=== PATIENT | male | born 1960 | race Caucasian/White ===

== ENCOUNTER 2018-01-11 22:13 | Emergency (ER) | payer BC ==
[~2018-01-11] VITALS: Ht 175.3 cm; Wt 93.0 kg
[~2018-01-11 22:13] MED LIST: Adipex-P37.5 MG; DAILY MULTIPLE1 EACH; FEXPSEER; GLUC500; LACT10SY PO; METO50ER PO; NAPR550 PO; OXYACE5T PO; RXNAPNA550 PO
[2018-01-12 01:58] LABS: BASOPHILS ABSOLUTE AUTO 0.03 K/mm3 (0.00-0.23); BASOPHILS PERCENT AUTO 0 % (0-2); EOSINOPHILS ABSOLUTE AUTO 0.09 K/mm3 (0.00-0.68); EOSINOPHILS PERCENT AUTO 1 % (0-6); Hematocrit 39.1 % (37.0-53.0); Hemoglobin 13.1 g/dL (13.5-17.5); IMMATURE GRAN ABSOLUTE AUTO 0.03 K/mm3 (0.00-0.10); IMMATURE GRAN PERCENT AUTO 0 % (0-1); LYMPHOCYTES ABSOLUTE AUTO 2.31 K/mm3 (0.84-5.20); LYMPHOCYTES PERCENT AUTO 22 % (21-46); MONOCYTES ABSOLUTE AUTO 0.85 K/mm3 (0.16-1.47); MONOCYTES PERCENT AUTO 8 % (4-13); Mean Corpuscular HGB Conc 33.5 g/dL (31.5-36.5); Mean Corpuscular Volume 95 fL (80-100); NEUTROPHILS ABSOLUTE AUTO 7.26 K/mm3 (1.96-9.15); NEUTROPHILS PERCENT AUTO 69 % (41-73); Platelet Count 208 K/mm3 (150-400); RDW Coefficient Variation 12.3 % (11.7-14.2); RDW Standard Deviation 42.9 fL (35.1-46.3); White Blood Cell Count 10.57 K/mm3 (4.00-11.30)
[2018-01-12 02:18] LABS: Alanine Aminotransfer (ALT/SGP 44 U/L (12-78); Albumin, Blood 3.6 g/dL (3.4-5.0); Albumin/Globulin Ratio 0.9 (0.8-1.8); Alk Phos 69 U/L (50-136); Anion Gap 8 mmol/L (6-16); Aspartate Aminotrans (AST/SGOT 42 U/L (12-37); Bilirubin, Total 0.6 mg/dL (0.1-1.0); Blood Urea Nitrogen 9 mg/dL (8-24); Bun/Creatinine Ratio 11.7 (12.0-20.0); CO2, Blood 25 mmol/L (21-32); Calcium, Blood 8.2 mg/dL (8.5-10.1); Chloride, Blood 105 mmol/L (98-108); Creatinine, Blood 0.77 mg/dL (0.60-1.20); Globulin, Blood 4.1 g/dL (2.2-4.0); Glomerular Filtration Rate >60 (60-); Glucose, Blood 114 mg/dL (70-99); Potassium, Blood 4.3 mmol/L (3.5-5.5); Sodium, Blood 138 mmol/L (136-145); Total Protein, Blood 7.7 g/dL (6.4-8.2); Troponin I <0.015 ng/mL (0.000-0.040)
[2018-01-12 02:27] LABS: Influenza A Negative (NEGATIVE); Influenza B Negative (NEGATIVE)
[2018-01-12] MEDS ORDERED: Levaquin500 MG PO (02:55)
== END 2018-01-12 03:19 | disposition home or self-care (01) ==
LOC: ER 22:13
PROVIDERS: Emergency Medicine
DX: J18.9 Pneumonia, unspecified organism (principal); Z79.899 Other long term (current) drug therapy; I10 Essential (primary) hypertension; Z98.890 Other specified postprocedural states
CPT/HCPCS: 36415; 71046; 80053; 83880; 84484; 85025; 87804; 93005; 93010; 99283

== ENCOUNTER 2019-02-05 20:35 | Emergency (ER) | payer BC ==
[~2019-02-05] VITALS: Ht 175.3 cm; Wt 99.8 kg
[~2019-02-05 20:35] MED LIST changes: +Levaquin500 MG PO
[2019-02-05] MEDS ORDERED: Cardizem LA120 MG PO (21:26)
[2019-02-06 00:36] LABS: BASOPHILS ABSOLUTE AUTO 0.05 K/mm3 (0.00-0.23); BASOPHILS PERCENT AUTO 1 % (0-2); EOSINOPHILS ABSOLUTE AUTO 0.15 K/mm3 (0.00-0.68); EOSINOPHILS PERCENT AUTO 3 % (0-6); Hemoglobin 13.9 g/dL (13.5-17.5); IMMATURE GRAN ABSOLUTE AUTO 0.01 K/mm3 (0.00-0.10); IMMATURE GRAN PERCENT AUTO 0 % (0-1); LYMPHOCYTES ABSOLUTE AUTO 2.97 K/mm3 (0.84-5.20); LYMPHOCYTES PERCENT AUTO 51 % (21-46); MONOCYTES ABSOLUTE AUTO 0.37 K/mm3 (0.16-1.47); MONOCYTES PERCENT AUTO 6 % (4-13); Mean Corpuscular HGB 32.7 pg (26.0-34.0); Mean Corpuscular HGB Conc 33.1 g/dL (31.5-36.5); Mean Corpuscular Volume 99 fL (80-100); Mean Platelet Volume 10.5 fL (9.1-12.4); NEUTROPHILS ABSOLUTE AUTO 2.26 K/mm3 (1.96-9.15); NEUTROPHILS PERCENT AUTO 39 % (41-73); Platelet Count 162 K/mm3 (150-400); RDW Coefficient Variation 12.5 % (11.7-14.2); Red Blood Cell Count 4.25 M/mm3 (4.30-5.90); White Blood Cell Count 5.81 K/mm3 (4.00-11.30)
[2019-02-06 00:46] LABS: Alanine Aminotransfer (ALT/SGP 42 U/L (12-78); Albumin, Blood 4.1 g/dL (3.4-5.0); Albumin/Globulin Ratio 1.4 (0.8-1.8); Alk Phos 46 U/L (50-136); Anion Gap 6 mmol/L (6-16); Aspartate Aminotrans (AST/SGOT 19 U/L (12-37); Bilirubin, Total 0.3 mg/dL (0.1-1.0); Blood Urea Nitrogen 19 mg/dL (8-24); Bun/Creatinine Ratio 23.4 (12.0-20.0); CO2, Blood 24 mmol/L (21-32); Calcium, Blood 8.5 mg/dL (8.5-10.1); Chloride, Blood 111 mmol/L (98-108); Creatinine, Blood 0.81 mg/dL (0.60-1.20); Glomerular Filtration Rate >60 (60-); Glucose, Blood 107 mg/dL (70-99); Potassium, Blood 3.5 mmol/L (3.5-5.5); Sodium, Blood 141 mmol/L (136-145); Total Protein, Blood 7.1 g/dL (6.4-8.2)
== END 2019-02-06 03:13 | disposition home or self-care (01) ==
LOC: ER 20:35
PROVIDERS: Emergency Medicine
DX: R59.0 Localized enlarged lymph nodes (principal); I10 Essential (primary) hypertension; Z79.899 Other long term (current) drug therapy
CPT/HCPCS: 36415; 70491; 80053; 85025; 99283-25; Q9967

== ENCOUNTER 2019-04-09 07:43 | Day surgery (SDC) | payer BC ==
[~2019-04-09 07:43] MED LIST changes: +Cardizem LA120 MG PO
== END 2019-04-10 22:40 | disposition home or self-care (01) ==
LOC: MOI US 07:43
DX: C91.10 Chronic lymphocytic leukemia of B-cell type not having achieved remission (principal)
CPT/HCPCS: 38505; 76942; 88305; 88341; 88342

== ENCOUNTER 2020-11-13 07:17 | Observation (INO) | payer BC ==
[~2020-11-13] VITALS: Ht 175.3 cm; Wt 100.0 kg
[2020-11-13] MEDS ORDERED: METO100ER PO (07:24)
[2020-11-13] MEDS ORDERED: IMBRUVICA420 MG PO (07:24)
[2020-11-13 08:31] LABS: BASOPHILS ABSOLUTE AUTO 0.05 K/mm3 (0.00-0.23); BASOPHILS PERCENT AUTO 0 % (0-2); EOSINOPHILS ABSOLUTE AUTO 0.02 K/mm3 (0.00-0.68); EOSINOPHILS PERCENT AUTO 0 % (0-6); Hematocrit 44.4 % (37.0-53.0); Hemoglobin 14.5 g/dL (13.5-17.5); IMMATURE GRAN ABSOLUTE AUTO 0.05 K/mm3 (0.00-0.10); IMMATURE GRAN PERCENT AUTO 0 % (0-1); LYMPHOCYTES ABSOLUTE AUTO 0.89 K/mm3 (0.84-5.20); LYMPHOCYTES PERCENT AUTO 6 % (21-46); MONOCYTES PERCENT AUTO 4 % (4-13); Mean Corpuscular HGB 32.7 pg (26.0-34.0); Mean Corpuscular HGB Conc 32.7 g/dL (31.5-36.5); Mean Corpuscular Volume 100 fL (80-100); Mean Platelet Volume 11.5 fL (9.1-12.4); NEUTROPHILS PERCENT AUTO 89 % (41-73); Platelet Count 156 K/mm3 (150-400); RDW Standard Deviation 47.9 fL (35.1-46.3); Red Blood Cell Count 4.44 M/mm3 (4.30-5.90); White Blood Cell Count 14.21 K/mm3 (4.00-11.30)
[2020-11-13 08:56] LABS: Troponin I <0.015 ng/mL (0.000-0.040)
[2020-11-13 08:57] LABS: Alanine Aminotransfer (ALT/SGP 32 U/L (12-78); Albumin, Blood 3.8 g/dL (3.4-5.0); Albumin/Globulin Ratio 1.2 (0.8-1.8); Alk Phos 50 U/L (50-136); Anion Gap 6 mmol/L (6-16); Aspartate Aminotrans (AST/SGOT 19 U/L (12-37); Bilirubin, Total 0.5 mg/dL (0.1-1.0); Blood Urea Nitrogen 11 mg/dL (8-24); Bun/Creatinine Ratio 13.1 (12.0-20.0); CO2, Blood 23 mmol/L (21-32); Calcium, Blood 8.9 mg/dL (8.5-10.1); Chloride, Blood 111 mmol/L (98-108); Creatinine, Blood 0.84 mg/dL (0.60-1.20); Globulin, Blood 3.1 g/dL (2.2-4.0); Glomerular Filtration Rate >60 (60-); Glucose, Blood 129 mg/dL (70-99); Potassium, Blood 4.2 mmol/L (3.5-5.5); Sodium, Blood 140 mmol/L (136-145); Total Protein, Blood 6.9 g/dL (6.4-8.2)
[2020-11-13] MEDS ORDERED: TOPROL XL50 M1 PO (12:19)
[2020-11-13 15:25] LABS: Source, Urine Clean Catch
[2020-11-13 15:29] LABS: Appearance, Urine Clear (Clear); Bilirubin, Urine Neg (Neg); Blood, Urine 2+ (Neg); Color, Urine Yellow (P-Yellow); Glucose Qualitative, Urine Neg (Neg); Ketones, Urine Neg (Neg); Leukocyte Esterase, Urine Neg (Neg); Nitrite, Urine Neg (Neg); Protein, Urine Neg (Neg); Urobilinogen, Urine NORM (Normal)
[2020-11-13 15:37] LABS: Bacteria Not Seen /hpf; Red Blood Cells, Urine 0-2 /hpf (0-2); Squamous Epithelial Cells Not Seen /hpf (Few); White Blood Cells, Urine Not Seen /hpf (0-5)
[2020-11-13] MEDS ORDERED: Allergy Relief10 M1 PO (16:25)
[2020-11-13] MEDS ORDERED: META800 PO (16:25)
[2020-11-13] MEDS ORDERED: DIPH50 PO (16:26)
--- NOTE | 2020-11-13 19:17 | NUR ---
SHIFT SUMMARY MARSHA ARRIVED FROM ER AROUND 220 PM. COMPLAINED OF MILD PAIN IN SHOULDERS/CHEST/HEAD. GOT TYLENOL FOR HEADACHE, STATES HIS CHEST AND SHOULDER PAIN ARE MUCH BETTER THAN IN ER. TELE SHOWS NSR. INDEP TO BR. CALL LIGHT IN REACH, REPORT GIVEN TO NIGHT NURSE
[2020-11-14 05:21] LABS: BASOPHILS ABSOLUTE AUTO 0.03 K/mm3 (0.00-0.23); BASOPHILS PERCENT AUTO 0 % (0-2); EOSINOPHILS ABSOLUTE AUTO 0.02 K/mm3 (0.00-0.68); EOSINOPHILS PERCENT AUTO 0 % (0-6); Hematocrit 40.5 % (37.0-53.0); Hemoglobin 13.2 g/dL (13.5-17.5); IMMATURE GRAN ABSOLUTE AUTO 0.03 K/mm3 (0.00-0.10); IMMATURE GRAN PERCENT AUTO 0 % (0-1); LYMPHOCYTES ABSOLUTE AUTO 1.45 K/mm3 (0.84-5.20); LYMPHOCYTES PERCENT AUTO 18 % (21-46); MONOCYTES ABSOLUTE AUTO 0.72 K/mm3 (0.16-1.47); MONOCYTES PERCENT AUTO 9 % (4-13); Mean Corpuscular HGB Conc 32.6 g/dL (31.5-36.5); Mean Corpuscular Volume 98 fL (80-100); Mean Platelet Volume 11.1 fL (9.1-12.4); NEUTROPHILS ABSOLUTE AUTO 6.03 K/mm3 (1.96-9.15); NEUTROPHILS PERCENT AUTO 73 % (41-73); Platelet Count 139 K/mm3 (150-400); RDW Standard Deviation 46.5 fL (35.1-46.3); Red Blood Cell Count 4.13 M/mm3 (4.30-5.90); White Blood Cell Count 8.28 K/mm3 (4.00-11.30)
[2020-11-14 05:37] LABS: LDL/HDL RATIO 1.6; Very Low Density Lipoprot Chol 15 mg/dL (6-32)
[2020-11-14 05:38] LABS: CHOL/HDL RATIO 2.9; Cholesterol 150 mg/dL (50-200); HDL Cholesterol 51 mg/dL (>39); Low Density Lipoprotein Chol 84 mg/dL (0-110); Triglycerides 76 mg/dL (30-160)
--- NOTE | 2020-11-14 05:45 | NUR ---
SHIFT SUMMARY AOX4. VSS. TELE NSR c PVC @96. DENIES DYSPNEA, N/V, DIZZINESS, MEDRANO. REPORTS 01/10 "DISCOMFORT" NOT PAIN, IN BILAT SHOULDERS & MID CHEST/STERNUM. STATES HIS PAIN IS WAY BETTER THEN YESTERDAY MORNING. TROPONINS HAVE BEEN NEG. IND IN ROOM. CALL LIGHT IN REACH & PT ABLE TO MAKE NEEDS KNOWN. WILL MONITOR UNTIL DAY NURSE ASSUMES CARE.
--- NOTE | 2020-11-14 12:46 | NUR ---
Patient is lying in bed and alert. Patient tells me about his cancer diagnosis, his current symptoms and his hopes of DC soon. Patient talks of his family unit, his anabaptist ([employer]) and his career (42yrs in [employer] and 31yrs at [employer]). We discuss our common Lymphoma stories and the valuable lessons gained along the way. Patient shares about his personal feelings. I normalize the struggle he and his family are going through, reinforce his positive/yonmu-[id number]-emzd attitude and provide therapeutic listening. pastoral career guidance counselor and prayer. Patient responds well and shows signs of increased hope and valentina. I will continue to remain available to patient and family.
[2020-11-14 14:14] LABS: Influenza A, PCR Negative (NEGATIVE); Influenza B, PCR Negative (NEGATIVE); Resp Syncytial Virus, PCR Negative (NEGATIVE); SARS-Cov-2 (COVID-19) PCR, MMC Negative (NEGATIVE)
--- NOTE | 2020-11-14 14:45 | NUR ---
PATIENT D/C'D TO HOME. F/U APPT MADE WITH PCP AND ONCOLOGIST. NO NEW PRESCRIPTIONS ORDERED. DC INSTRUCTIONS AND EDUCATION DISCUSSED WITH PATIENT AND COPY PROVIDED. PATIENT DENIES ANY FURTHER QUESTIONS OR CONCERNS.
== END 2020-11-14 14:46 | disposition home or self-care (01) ==
LOC: ER 07:17 → MEDS 07:18
PROVIDERS: Emergency Medicine; Family Medicine; Nurse Practitioner Acute Care; ADMIT Internal Medicine
DX: R07.2 Precordial pain (principal); M25.512 Pain in left shoulder; M25.511 Pain in right shoulder; R00.0 Tachycardia, unspecified; C85.90 Non-Hodgkin lymphoma, unspecified, unspecified site; D72.828 Other elevated white blood cell count; I10 Essential (primary) hypertension; Z79.899 Other long term (current) drug therapy; Z20.828 Contact with and (suspected) exposure to other viral communicable diseases; Z23 Encounter for immunization; Z88.8 Allergy status to other drugs, medicaments and biological substances
CPT/HCPCS: 0241U; 36415; 71046; 71275; 80053; 80061; 81001; 83880; 84484; 85025; 85379; 85651; 86140; 93005; 93010; 93306; 96374-59; 96375-59; 99285-25; A9270; A9270-GY; G0378; J2405; J3010; J7030; J7120; Q9967

== ENCOUNTER 2021-02-08 10:05 | Day surgery (SDC) | payer BC ==
[~2021-02-08] VITALS: Ht 175.3 cm; Wt 95.3 kg
[~2021-02-08 10:05] MED LIST changes: +Allergy Relief10 M1 PO; +DIPH50 PO; +IMBRUVICA420 MG PO; +META800 PO; +METO100ER PO; +TOPROL XL50 M1 PO
--- NOTE | 2021-02-08 11:51 | NUR ---
Ambulatory in Day Surgery History, Chart, Medications and Allergies reviewed before start of procedure. Lungs clear T/O to Auscultation. Pre-Op teaching done. Pt verbalizes understanding.
--- NOTE | 2021-02-08 14:16 | NUR ---
ARRIVED FROM PACU VSS STERI STRIPS IN PLACE TIMES 4. RECIEVED REPORT.
--- NOTE | 2021-02-08 16:13 | NUR ---
PATIENT HAS BEEN FEELING NAUSEATED AND PAINFUL GIVEN PO RX AND ANTI NAUSEA MEDS STATES IS FEELING BETTER.
--- NOTE | 2021-02-08 17:49 | NUR ---
DOCTOR WAS HERE ABOUT 1720 TALKING WITH APTIENT SCOPE PATCH ORDERED AND PLACED ON PATIENT VSS. ABOUT 5 MINUTES LATER PATIENT WANTED TO GET DRESSED TO LEAVE HOPITAL PATIENT ASSISTED UP AND HE DRESSED USED RESTROOOM AND WAS DISCHARGED WITH ALL BELONGINGS AND DISCHARGE INSTRUCTIONS.. Discharge instructions reviewed with patient. Patient verbalizes understanding. Copy given to patient to take home. Patient States Post-Procedure ride home has been arranged. Discharged via wheelchair to private car for ride home.
== END 2021-02-08 17:45 | disposition home or self-care (01) ==
LOC: ORSCMMR 10:05 → ORD 11:30 → ORSCMMR 11:30
PROVIDERS: Surgery
PROC: BF031ZZ Plain Radiography of Gallbladder and Bile Ducts using Low Osmolar Contrast (ICD-10-PCS; principal; 2021-02-08 11:30)
PROC: 0FT44ZZ Resection of Gallbladder, Percutaneous Endoscopic Approach (ICD-10-PCS; principal; 2021-02-08 11:30)
DX: K80.10 Calculus of gallbladder with chronic cholecystitis without obstruction (principal); G47.33 Obstructive sleep apnea (adult) (pediatric); Z79.899 Other long term (current) drug therapy
CPT/HCPCS: 74300; 88304; A9270; C1729; J0690; J1100; J1885; J2250; J2405; J2704; J2710; J2765; J3010; J7120

== ENCOUNTER 2022-05-16 09:50 | Day surgery (SDC) | payer BC ==
[~2022-05-16] VITALS: Ht 175.3 cm; Wt 89.3 kg
[~2022-05-16 09:50] MED LIST changes: +B-12500 MC2 PO; +BENADRYL25 MG PO; +BENEFIBER236 G1 PO; +CALCIUM 250-D1 EAC1 PO; +Coq-1030 MG PO; +GLUCHON PO; +MULVITA PO
--- NOTE | 2022-05-16 10:36 | NUR ---
PT ADMITTED TO [facility]. AGREES WITH PLANNED SURGERYL. LUNG SOUNDS CLEAR.
--- NOTE | 2022-05-16 13:30 | NUR ---
REPORT FROM HIEU YOUSIF RN. PT HAS ONE INCISION SITE ON L INGUINAL AREA THAT IS COVERED WITH FOUR INCHES OF GUAZE AND CLEAR WINDOW TAPE. DRESSING IS DRY, CLEAN AND INTACT, NO DRAINAGE OR INFLAMMATION OR REDNESS NOTED.
--- NOTE | 2022-05-16 13:59 | NUR ---
PT TOLERATING PO FLUIDS AND FOOD, REPOSITIONING SELF IN BED, REQUESTING TO GO HOME.
--- NOTE | 2022-05-16 14:29 | NUR ---
Patient up to Ambulate independently. Gait steady. Discharge instructions reviewed with patient. Patient verbalizes understanding. Copy given to patient to take home. Dressing to procedure site clean, dry, intact with no visible drainage, swelling, erythema or bruising noted. Patient States Post-Procedure ride home has been arranged. Discharged via wheelchair to private car for ride home. ALL BELONGINGS RETURNED TO PATIENT TO INCLUDE CELLPHONE AND GLASSES.
== END 2022-05-16 22:33 | disposition home or self-care (01) ==
LOC: ORSCMMR 09:50 → ORD 11:15 → ORSCMMR 11:15
PROVIDERS: Surgery
PROC: 0YU60JZ Supplement Left Inguinal Region with Synthetic Substitute, Open Approach (ICD-10-PCS; principal; 2022-05-16 11:15)
DX: K40.91 Unilateral inguinal hernia, without obstruction or gangrene, recurrent (principal); I10 Essential (primary) hypertension; G47.33 Obstructive sleep apnea (adult) (pediatric); Z79.899 Other long term (current) drug therapy
CPT/HCPCS: A9270; J0690; J1100; J1885; J2250; J2370; J2405; J2704; J3010; J7120

== ENCOUNTER 2022-06-27 19:05 | Observation (INO) | payer BC ==
[~2022-06-27] VITALS: Ht 175.3 cm; Wt 85.8 kg
[2022-06-27 19:44] LABS: Hematocrit 42.3 % (37.0-53.0); Hemoglobin 14.5 g/dL (13.5-17.5); Mean Corpuscular HGB 32.2 pg (26.0-34.0); Mean Corpuscular HGB Conc 34.3 g/dL (31.5-36.5); Mean Corpuscular Volume 94 fL (80-100); Mean Platelet Volume 11.2 fL (9.1-12.4); Platelet Count 184 K/mm3 (150-400); RDW Coefficient Variation 13.5 % (11.7-14.2); RDW Standard Deviation 46.7 fL (35.1-46.3)
[2022-06-27 20:14] LABS: Albumin, Blood 4.1 g/dL (3.4-5.0); Albumin/Globulin Ratio 1.4 (0.8-1.8); Bilirubin, Total 0.6 mg/dL (0.1-1.0); Bun/Creatinine Ratio 14.2 (12.0-20.0); Creatinine, Blood 0.56 mg/dL (0.60-1.20); Potassium, Blood 3.8 mmol/L (3.5-5.5); Total Protein, Blood 7.1 g/dL (6.4-8.2)
[2022-06-27 20:15] LABS: BAND PERCENT MAN 1 % (0-8); BASOPHILS PERCENT MAN 0 % (0-2); EOSINOPHILS ABSOLUTE MAN 0.13 K/mm3 (0.00-0.68); EOSINOPHILS PERCENT MAN 1 % (0-6); LYMPHOCYTES ABSOLUTE MAN 2.16 K/mm3 (0.84-5.20); LYMPHOCYTES PERCENT MAN 16 % (21-46); MONOCYTES ABSOLUTE MAN 0.81 K/mm3 (0.16-1.47); MONOCYTES PERCENT MAN 6 % (4-13); NEUTROPHILS ABSOLUTE MAN 10.39 K/mm3 (1.96-9.15); SEG NEUTROPHILS PERCENT MAN 76 % (41-73); TOTAL CELLS COUNTED 100
[2022-06-27 23:44] LABS: Influenza A, PCR NEGATIVE (NEGATIVE); Influenza B, PCR NEGATIVE (NEGATIVE); Resp Syncytial Virus, PCR NEGATIVE (NEGATIVE); SARS-Cov-2 (COVID-19) PCR, MMC NEGATIVE (NEGATIVE)
--- NOTE | 2022-06-28 10:23 | NUR ---
Pt. is awake and welcomes my visit. Pt. is pleasant and rapport is quickly established. Pt. displays evidence of being realistically anxious about the wait for an opening for surgery. Listen empathetically with a calming presence. Pt. verbalizes that he has family support and has been under treatment for lymphoma. Prayed with Pt. Pt. verbalized gratitude for the spiritual care visit.
--- NOTE | 2022-06-28 12:18 | NUR ---
THE PATIENT WAS BROUGHT TO DAY SURGERY FOR HIS PROCEDURE.
--- NOTE | 2022-06-28 14:54 | NUR ---
06/28/22 1454 Kirstin Holcomb NO PREOP ANTIBIOTICS ORDERD PER , PATIENT IS ON SCHEDULED ANTIBIOTICS.
--- NOTE | 2022-06-28 18:08 | NUR ---
SHIFT SUMMARY PT A&OX4, VSS/RA. SIPPING CLEAR LIQUIDS, AWAITING POST-OP VOID, DENIES NEED FOR PAIN MEDICATION. STAND TRANSFER UPON RETURN FROM PACU. WILL REPORT TO ONCOMING NOC RN.
--- NOTE | 2022-06-29 06:48 | NUR ---
SHIFT SUMMARY POD1 LAP APPY W/ 3 LAP SITES (DERMABOND) REMAIN CDI. PT RERPOTS MOD PAIN AT THE BEGINNING OF SHIFT TO MILD PAIN THIS MORNING. PAIN MANAGED WITH 1 TAB OF NORCO 5/325 AND TORADOL. VSS. MILDLY TACHY AT THE BEGINNING OF SHIFT. VOIDING WITHOUT DIFFICULTY. AOX4. DENIES PASSING FLATUS. BT PRESENT. TOLERATING CLEAR DIET T/O SHIFT. DENIES NAUSEA AND VOMITING. 1SBA. IV ABX ADMINISTERED. CALL LIGHT WITHIN REACH. WILL CONTINUE TO MONITOR AND WILL PROVIDE REPORT TO ONCOMING NURSE.
[2022-06-29] MEDS ORDERED: AMOCLA875 PO (11:06)
[2022-06-29] MEDS ORDERED: HYDR1TAB94 PO (11:07)
--- NOTE | 2022-06-29 12:24 | NUR ---
DISCHARGE SUMMARY POD1 LAP APPY, A/O X4, VSS, TOLERATING PO, AMBULATING INDEPENDENTLY, DENIES PAIN, VOIDING WELL, PASSING FLATUS. DISCUSSED DISCHARGE INSTRUCTIONS WITH THE PATIENT INCLUDING HOME CARE, S/SX TO LOOK OUT FOR AND HOW TO CONTACT SURGEON/SURGICAL STAFF WITH CONCERNS/FOLLOW UP QUESTIONS, MEDICATIONS, AND FOLLOW UP APPOINTMENTS. PT HAD NO QUESTIONS, IV ACCESS REMOVED. PT DRESSED INDEPENDENTLY AND LEFT ON HIS OWN, DECLINED WC ESCORT.
== END 2022-06-29 11:50 | disposition home or self-care (01) ==
LOC: ER 19:05 → MEDS 19:06 → SURS 19:06
PROVIDERS: Student in an Organized Health Care Education/Training Program; ADMIT Surgery
DX: K35.80 Unspecified acute appendicitis (principal); Z79.899 Other long term (current) drug therapy; Z20.822 Contact with and (suspected) exposure to COVID-19
CPT/HCPCS: 0241U; 36415; 74177; 80053; 85025; 88304; 94760; 96361; 96365-59; 96366; 96368; 96375; 96376; 99285-25; A9270; G0378; J0295; J0744; J1100; J1885; J2250; J2270; J2405; J2704; J3010; J7030; J7120; Q9967

== ENCOUNTER → 2023-03-03 | Outpatient (CLI) | payer BC ==
[~2023-03-03] MED LIST changes: +AMOCLA875 PO; +HYDR1TAB94 PO
== END | disposition home or self-care (01) ==
LOC: LAB SHORT 11:28 → PLD 11:28
DX: C44.519 Basal cell carcinoma of skin of other part of trunk (principal); C79.2 Secondary malignant neoplasm of skin
CPT/HCPCS: 88305

== ENCOUNTER → 2023-04-15 | Outpatient (CLI) | payer BC | LOC: PLD 09:15 → LAB SHORT 09:15 → LAB 09:15 | DX: C44.519 Basal cell carcinoma of skin of other part of trunk (principal) | CPT/HCPCS: 88305 ==

== ENCOUNTER → 2023-04-29 | Outpatient (CLI) | payer BC | END | disposition home or self-care (01) | LOC: PLD 08:30 → LAB SHORT 08:30 | DX: C44.619 Basal cell carcinoma of skin of left upper limb, including shoulder (principal) | CPT/HCPCS: 88305 ==

== ENCOUNTER → 2023-09-02 | Outpatient (CLI) | payer BC | LOC: LAB SHORT 11:52 → LAB 11:52 | DX: L08.0 Pyoderma (principal) | CPT/HCPCS: 87070; 87077; 87147; 87186; 87205 ==

== ENCOUNTER 2024-06-10 15:39 | Emergency (ER) | payer BC ==
[~2024-06-10] VITALS: Ht 175.3 cm; Wt 94.8 kg
[2024-06-10 16:15] LABS: BASOPHILS ABSOLUTE AUTO 0.04 K/mm3 (0.00-0.23); BASOPHILS PERCENT AUTO 1 % (0-2); EOSINOPHILS ABSOLUTE AUTO 0.09 K/mm3 (0.00-0.68); EOSINOPHILS PERCENT AUTO 1 % (0-6); Hematocrit 42.3 % (37.0-53.0); Hemoglobin 14.4 g/dL (13.5-17.5); IMMATURE GRAN ABSOLUTE AUTO 0.02 K/mm3 (0.00-0.10); IMMATURE GRAN PERCENT AUTO 0 % (0-1); LYMPHOCYTES ABSOLUTE AUTO 2.81 K/mm3 (0.84-5.20); LYMPHOCYTES PERCENT AUTO 37 % (21-46); MONOCYTES ABSOLUTE AUTO 0.75 K/mm3 (0.16-1.47); MONOCYTES PERCENT AUTO 10 % (4-13); Mean Corpuscular HGB 33.1 pg (26.0-34.0); Mean Corpuscular Volume 97 fL (80-100); Mean Platelet Volume 11.6 fL (9.1-12.4); NEUTROPHILS PERCENT AUTO 51 % (41-73); Platelet Count 150 K/mm3 (150-400); RDW Coefficient Variation 12.9 % (11.7-14.2); RDW Standard Deviation 46.2 fL (35.1-46.3); Red Blood Cell Count 4.35 M/mm3 (4.30-5.90); White Blood Cell Count 7.61 K/mm3 (4.00-11.30)
[2024-06-10] MEDS ORDERED: IMBRUVICA420 MG PO (16:15)
[2024-06-10 16:35] LABS: Albumin, Blood 3.9 g/dL (3.4-5.0); Albumin/Globulin Ratio 1.2 (0.8-1.8); Bilirubin, Total 0.5 mg/dL (0.1-1.0); Bun/Creatinine Ratio 11.9 (12.0-20.0); Calcium, Blood 8.5 mg/dL (8.5-10.1); Creatinine, Blood 0.93 mg/dL (0.60-1.20); Globulin, Blood 3.2 g/dL (2.2-4.0); Potassium, Blood 3.4 mmol/L (3.5-5.5); Thyroid Stimulating Hormone 2.38 uIU/mL (0.360-4.800); Total Protein, Blood 7.1 g/dL (6.4-8.2)
[2024-06-10 18:18] VITALS: BP 176/90
== END 2024-06-10 18:18 | disposition home or self-care (01) ==
LOC: ER 15:39
PROVIDERS: Emergency Medicine
DX: R00.2 Palpitations (principal); I10 Essential (primary) hypertension
CPT/HCPCS: 80053; 84443; 84484; 85025; 93005; 93010; 99285-25

== ENCOUNTER 2025-03-09 10:27 | Observation (INO) | payer MEDICARE ==
[~2025-03-09] VITALS: Ht 175.3 cm; Wt 95.3 kg
[2025-03-09 11:44] LABS: BASOPHILS ABSOLUTE AUTO 0.06 K/mm3 (0.00-0.23); BASOPHILS PERCENT AUTO 1 % (0-2); EOSINOPHILS ABSOLUTE AUTO 0.08 K/mm3 (0.00-0.68); EOSINOPHILS PERCENT AUTO 1 % (0-6); Hematocrit 44.6 % (37.0-53.0); Hemoglobin 14.8 g/dL (13.5-17.5); IMMATURE GRAN ABSOLUTE AUTO 0.12 K/mm3 (0.00-0.10); IMMATURE GRAN PERCENT AUTO 2 % (0-1); LYMPHOCYTES ABSOLUTE AUTO 1.76 K/mm3 (0.84-5.20); LYMPHOCYTES PERCENT AUTO 28 % (21-46); MONOCYTES ABSOLUTE AUTO 0.38 K/mm3 (0.16-1.47); MONOCYTES PERCENT AUTO 6 % (4-13); Mean Corpuscular HGB 32.5 pg (26.0-34.0); Mean Corpuscular HGB Conc 33.2 g/dL (31.5-36.5); Mean Corpuscular Volume 98 fL (80-100); Mean Platelet Volume 11.1 fL (9.1-12.4); NEUTROPHILS ABSOLUTE AUTO 3.97 K/mm3 (1.96-9.15); NEUTROPHILS PERCENT AUTO 62 % (41-73); Platelet Count 167 K/mm3 (150-400); RDW Coefficient Variation 12.5 % (11.7-14.2); RDW Standard Deviation 45.1 fL (35.1-46.3); Red Blood Cell Count 4.55 M/mm3 (4.30-5.90); White Blood Cell Count 6.37 K/mm3 (4.00-11.30)
[2025-03-09 11:55] LABS: International Normalized Ratio 1.02; Prothrombin Time Results 10.9 Sec (9.7-11.5)
[2025-03-09] MEDS ORDERED: FentaNYL Citrate 50 MCG/ML 2 ML Injection IV ONE (12:20)
[2025-03-09 12:33] LABS: Albumin, Blood 3.9 g/dL (3.4-5.0); Albumin/Globulin Ratio 1.1 (0.8-1.8); Bilirubin, Total 0.5 mg/dL (0.1-1.0); Bun/Creatinine Ratio 10.6 (12.0-20.0); Calcium, Blood 9.2 mg/dL (8.5-10.1); Creatinine, Blood 0.94 mg/dL (0.60-1.20); Globulin, Blood 3.4 g/dL (2.2-4.0); Potassium, Blood 4.7 mmol/L (3.5-5.5); Total Protein, Blood 7.3 g/dL (6.4-8.2)
[2025-03-09] MEDS ORDERED: NS 1,000 ML IV SCH (16:35)
[2025-03-09] MEDS ORDERED: OxyCODONE HCL 5 MG TAB PO ONE (16:35)
[2025-03-09] MEDS ORDERED: Ondansetron 4 MG TAB PO ONE (16:35)
[2025-03-09] MEDS ORDERED: Magnesium Hydroxide Conc 10 ML UDC PO PRN (19:10)
[2025-03-09] MEDS ORDERED: FentaNYL Citrate 50 MCG/ML 2 ML Injection IV PRN (19:10)
[2025-03-09] MEDS ORDERED: HYDROcodone 5-APAP 325 TAB PO PRN (19:10)
[2025-03-09] MEDS ORDERED: Ondansetron HCl 2 MG / ML 2ML Vial IV PRN (19:10)
[2025-03-09] MEDS ORDERED: Docusate Sodium 100 MG Cap PO SCH (21:00)
[2025-03-09] MEDS ORDERED: BRUKINSA80 MG PO (22:21)
[2025-03-09 22:35] VITALS: BP 135/100
--- NOTE | 2025-03-09 22:44 | NUR ---
ARRIVAL TO UNIT PT ARRIVED TO ROOM 216 [place]IA [place]. AAOX4 AND PLEASANT. PT TRANSFERED FROM GURNEY TO BED WITH STAFF ASSIST DUE TO PAIN. PT ARRIVED WITH NO IV IN PLACE. NEW IV TO BE STARTED.
[2025-03-10 04:53] VITALS: BP 129/86
--- NOTE | 2025-03-10 05:25 | NUR ---
BREAD DISTRIBUTOR SUMMARY PT IS A NEW ADMIT FROM THE ED T[place]. AAOX4 AND PLEASANT. PT FELL FROM A LADDER AT HOME AND NOW HAS A STERNAL FRACTURE. PAIN SOMEWHAT MANAGED WITH NORCO 1 TAB AFTER PT ARRIVED TO UNIT. PT SLEPT A LITTLE BUT STATED THAT PAIN WAS STILL A LITTLE BOTHERSOME. PT GIVEN 2 TABS NORCO THIS MORNING FOR BETTER PAIN CONTROL. PT ON TELEMETRY AND HAS BEEN SINUS TACH LOW 100'S THROUGH THE NIGHT. PT HAS NOT AMBULATED SINCE COMING TO THE FLOOR DUE TO PAIN BUT STATES HE IS NORMALLY INDEPENDENT. VSS, WILL CONTINUE TO MONITOR.
[2025-03-10 07:11] VITALS: BP 124/103
[2025-03-10 07:15] VITALS: BP 115/87
--- NOTE | 2025-03-10 07:28 | NUR ---
Ice bag applied to sternum for ten minutes. will continue to monitor.
[2025-03-10] MEDS ORDERED: ZANUBRUTINIB 80 MG PO SCH (09:00)
[2025-03-10] MEDS ORDERED: IBRUTINIB 420 MG PO SCH (09:00)
[2025-03-10] MEDS ORDERED: Metoprolol Succinate 50 MG TABCR PO SCH (09:00)
[2025-03-10] MEDS ORDERED: Rizatriptan Benzoate 10 MG / TAB SoluTab PO PRN (11:55)
--- NOTE | 2025-03-10 12:26 | NUR ---
PT MEDICATED FOR MIGRAINE MEDRANO WITH RIZATRIPTAN. PLAN TO GET OOB FOR A WALK ONCE MIGRAINE RESOLVING
[2025-03-10 12:34] VITALS: BP 137/96; BP 141/93
--- NOTE | 2025-03-10 13:02 | NUR ---
PT SLEEPING AFTER MAXALT ADMINISTRATION. WILL ALLOW TO REST FOR A BIT TO BREAK THE MIGRAINE MEDRANO CYCLE. WILL CONTINUE TO MONITOR.
--- NOTE | 2025-03-10 13:25 | NUR ---
ALERT. HEADACHE RESOLVING PER PT. PT GETTING READY TO AMBULATE.
--- NOTE | 2025-03-10 13:43 | NUR ---
ACTIVITY PT ABLE TO GET OOB BY HIMSELF AND AMBULATE FOR SEVERAL MINUTES USING A WALKER. STERNAL PAIN 03/10. MIGRAINE RESOLVED. MD UPDATED WITH ACTIVITY AND PAIN STATUS.
[2025-03-10 14:28] VITALS: BP 117/89
[2025-03-10] MEDS ORDERED: DOCU100 PO (15:05)
[2025-03-10] MEDS ORDERED: Norco 5-325 Ta1 EACH PO (15:06)
[2025-03-10] MEDS ORDERED: ONDA4 PO (15:06)
--- NOTE | 2025-03-10 15:23 | NUR ---
DISCHARGE. DC INSTRUCT REVIEWED WITH PT. PRINTED INSTRUCT AND HANDWRITTEN RXS NORCO AND ZOFRAN DISPENSED. IV DC'D INTACT. STATED UNDERSTAND. DC'D TO POV
== END 2025-03-10 15:25 | disposition home or self-care (01) ==
LOC: ER 10:27 → ERHOLD 10:28 → SURS 10:28
PROVIDERS: Student in an Organized Health Care Education/Training Program; ADMIT Surgery
DX: S22.20XA Unspecified fracture of sternum, initial encounter for closed fracture (principal); W11.XXXA Fall on and from ladder, initial encounter; I10 Essential (primary) hypertension; C91.10 Chronic lymphocytic leukemia of B-cell type not having achieved remission; K76.0 Fatty (change of) liver, not elsewhere classified; Z79.899 Other long term (current) drug therapy; Z90.49 Acquired absence of other specified parts of digestive tract
CPT/HCPCS: 71045; 71260; 74177; 80053; 84484; 85025; 85610; 86850; 86900; 86901; 93005; 93010; 96374-59; 96375; 99285-25; A9270; G0378; J2405; J3010; J7030; Q9967